=== PATIENT | female | born 1945 | race Caucasian/White ===

== ENCOUNTER 2021-07-27 06:38 | Day surgery (SDC) | payer MEDICARE ==
[2021-07-27] VITALS (7 sets, daily range): BP systolic 125–161; BP diastolic 61–79
[~2021-07-27] VITALS: Ht 152.4 cm; Wt 77.2 kg
[2021-07-27] MEDS ORDERED: normal saline 1000ml 1,000 ML IV SCH ×2 (07:00→09:15)
[2021-07-27] MEDS ORDERED: ESOM20CA PO (07:18)
[2021-07-27] MEDS ORDERED: FURO20TA4 PO (07:18)
[2021-07-27] MEDS ORDERED: POTA-82 PO (07:18)
[2021-07-27] MEDS ORDERED: DILT-103 PO (07:18)
[2021-07-27] MEDS ORDERED: METO10TA8 PO (07:18)
[2021-07-27] MEDS ORDERED: LIDOcaine 1%/PF 5ML 10 MG/ML VIAL SQ ONE (09:10)
== END 2021-07-27 11:02 | disposition home or self-care (01) ==
LOC: SSTAY O 06:38
PROVIDERS: ATTEND Radiology Diagnostic Radiology
DX: R59.0 Localized enlarged lymph nodes (principal); C81.0 Nodular lymphocyte predominant Hodgkin lymphoma; I10 Essential (primary) hypertension; Z90.81 Acquired absence of spleen; Z90.49 Acquired absence of other specified parts of digestive tract; Z98.890 Other specified postprocedural states; Z88.1 Allergy status to other antibiotic agents; Z88.8 Allergy status to other drugs, medicaments and biological substances; Z79.899 Other long term (current) drug therapy
CPT/HCPCS: 10005; 88184; 88185; J7030; 38505

== ENCOUNTER 2022-03-15 08:07 | Day surgery (SDC) | payer MEDICARE ==
[~2022-03-15] VITALS: Ht 152.4 cm; Wt 75.8 kg
[2022-03-15] VITALS (10 sets, daily range): BP systolic 107–150; BP diastolic 58–80
[~2022-03-15 08:07] MED LIST: DILT-103 PO; ESOM20CA PO; FURO20TA4 PO; METO10TA8 PO; POTA-82 PO
[2022-03-15] MEDS ORDERED: PANT20TA18 PO (08:41)
[2022-03-15] MEDS ORDERED: LIDOcaine 1% 30ml preserv. free vial SQ STA (08:44)
[2022-03-15] MEDS ORDERED: normal saline 1000ml 1,000 ML IV SCH (09:55)
[2022-03-15] MEDS ORDERED: midazolam 1 mg/ML 2ml injection ONE (10:27)
[2022-03-15] MEDS ORDERED: fentaNYL/PF 50MCG/1 ML 2ML syringe ONE (10:27)
[2022-03-15] MEDS ORDERED: heparin sodium, porcine/PF 100unit/ml 5ML syringe ONE (10:27)
== END 2022-03-15 12:30 | disposition home or self-care (01) ==
LOC: SSTAY O 08:07
PROVIDERS: ATTEND Radiology Vascular & Interventional Radiology
DX: C85.90 Non-Hodgkin lymphoma, unspecified, unspecified site (principal); J90 Pleural effusion, not elsewhere classified; I10 Essential (primary) hypertension; Z79.899 Other long term (current) drug therapy; Z88.8 Allergy status to other drugs, medicaments and biological substances; Z90.49 Acquired absence of other specified parts of digestive tract; Z98.890 Other specified postprocedural states; Z90.81 Acquired absence of spleen
CPT/HCPCS: 32555; 36561; 76937; 77001; 99152; C1729; C1769; C1788; C1894; J1642; J2250; J3010; J3490; J7030; 99153; A4620

== ENCOUNTER 2022-03-22 06:14 | Day surgery (SDC) | payer MEDICARE ==
[~2022-03-22] VITALS: Ht 152.4 cm; Wt 74.8 kg
[2022-03-22] VITALS (7 sets, daily range): BP systolic 124–135; BP diastolic 57–95
[~2022-03-22 06:14] MED LIST changes: -ESOM20CA PO; -FURO20TA4 PO; -METO10TA8 PO; +PANT20TA18 PO
[2022-03-22] MEDS ORDERED: LIDOcaine 1% 30ml preserv. free vial IJ STA (06:36)
[2022-03-22] MEDS ORDERED: albumin 25% 100mL bottle x 1 IV PRN (06:45)
== END 2022-03-22 10:00 | disposition home or self-care (01) ==
LOC: SSTAY O 06:14
PROVIDERS: ATTEND Radiology Vascular & Interventional Radiology
DX: J90 Pleural effusion, not elsewhere classified (principal); I10 Essential (primary) hypertension; Z79.899 Other long term (current) drug therapy; Z90.49 Acquired absence of other specified parts of digestive tract; Z90.81 Acquired absence of spleen; Z98.890 Other specified postprocedural states; C85.95 Non-Hodgkin lymphoma, unspecified, lymph nodes of inguinal region and lower limb; Z88.8 Allergy status to other drugs, medicaments and biological substances
CPT/HCPCS: 32555; C1729; A4615

== ENCOUNTER 2022-03-29 06:32 | Day surgery (SDC) | payer MEDICARE ==
[~2022-03-29] VITALS: Ht 152.4 cm; Wt 74.9 kg
[~2022-03-29 06:32] MED LIST changes: -POTA-82 PO
[2022-03-29] MEDS ORDERED: LIDOcaine 1% 30ml preserv. free vial SQ STA (07:03)
[2022-03-29 07:29] VITALS: BP 138/61
[2022-03-29 09:16] VITALS: BP 138/63
[2022-03-29 09:30] VITALS: BP 132/54
[2022-03-29 09:45] VITALS: BP 130/56
== END 2022-03-29 09:48 | disposition home or self-care (01) ==
LOC: SSTAY O 06:32
PROVIDERS: ATTEND Radiology Vascular & Interventional Radiology
DX: J90 Pleural effusion, not elsewhere classified (principal); C85.90 Non-Hodgkin lymphoma, unspecified, unspecified site; Z90.81 Acquired absence of spleen; I10 Essential (primary) hypertension; Z90.49 Acquired absence of other specified parts of digestive tract; Z79.899 Other long term (current) drug therapy; Z98.890 Other specified postprocedural states; Z20.822 Contact with and (suspected) exposure to COVID-19
CPT/HCPCS: 32555; C1729

== ENCOUNTER 2022-04-03 09:00 | Day surgery (SDC) | payer MEDICARE ==
[~2022-04-03] VITALS: Ht 152.4 cm; Wt 73.2 kg
[2022-04-03] MEDS ORDERED: ondansetron 4mg rapidly disintigrating tab PO ONE (09:55)
[2022-04-03 10:09] VITALS: BP 156/111
[2022-04-03 10:16] VITALS: BP 112/55
[2022-04-03 10:50] VITALS: BP 105/52
== END 2022-04-03 10:50 | disposition home or self-care (01) ==
LOC: SSTAY O 09:00
PROVIDERS: ATTEND Radiology Vascular & Interventional Radiology
DX: J90 Pleural effusion, not elsewhere classified (principal); I10 Essential (primary) hypertension; Z85.72 Personal history of non-Hodgkin lymphomas; Z90.81 Acquired absence of spleen; Z90.49 Acquired absence of other specified parts of digestive tract; Z98.890 Other specified postprocedural states; Z79.899 Other long term (current) drug therapy
CPT/HCPCS: 32555; C1729

== ENCOUNTER 2022-04-13 09:00 | Day surgery (SDC) | payer MEDICARE ==
[~2022-04-13] VITALS: Ht 152.4 cm; Wt 74.2 kg
[2022-04-13 09:23] VITALS: BP 152/73
[2022-04-13] MEDS ORDERED: POTA-206 PO (09:26)
[2022-04-13] MEDS ORDERED: FURO20TA4 PO (09:27)
[2022-04-13 10:16] VITALS: BP 140/56
[2022-04-13 10:26] VITALS: BP 138/63
[2022-04-13 10:45] VITALS: BP 115/51
[2022-04-13 11:00] VITALS: BP 106/58
== END 2022-04-13 11:00 | disposition home or self-care (01) ==
LOC: SSTAY O 09:00
PROVIDERS: ATTEND Radiology Vascular & Interventional Radiology
DX: J90 Pleural effusion, not elsewhere classified (principal); I10 Essential (primary) hypertension; Z85.72 Personal history of non-Hodgkin lymphomas; Z90.81 Acquired absence of spleen; Z98.890 Other specified postprocedural states; Z79.899 Other long term (current) drug therapy; Z88.8 Allergy status to other drugs, medicaments and biological substances; Z88.1 Allergy status to other antibiotic agents; Z90.49 Acquired absence of other specified parts of digestive tract
CPT/HCPCS: 32555; C1729

== ENCOUNTER 2022-04-20 08:39 | Day surgery (SDC) | payer MEDICARE ==
[~2022-04-20] VITALS: Ht 152.4 cm; Wt 74.2 kg
[~2022-04-20 08:39] MED LIST changes: -DILT-103 PO; +FURO20TA4 PO; +POTA-206 PO
[2022-04-20 08:40] VITALS: BP 121/52
[2022-04-20] MEDS ORDERED: LIDOcaine 1% 30ml preserv. free vial SQ STA (08:49)
[2022-04-20] MEDS ORDERED: ONDA8TAB13 PO (08:59)
[2022-04-20] MEDS ORDERED: ALLO100T PO (08:59)
[2022-04-20] MEDS ORDERED: NIRM1TAB5 PO (08:59)
[2022-04-20] MEDS ORDERED: METO10TA8 PO (08:59)
[2022-04-20 09:25] VITALS: BP 107/51
[2022-04-20 09:30] VITALS: BP 123/95
[2022-04-20 09:45] VITALS: BP 121/54
[2022-04-20 10:00] VITALS: BP 121/54
== END 2022-04-20 10:05 | disposition home or self-care (01) ==
LOC: SSTAY O 08:39
PROVIDERS: ATTEND Radiology Vascular & Interventional Radiology
DX: J90 Pleural effusion, not elsewhere classified (principal); Z85.72 Personal history of non-Hodgkin lymphomas; Z90.81 Acquired absence of spleen; I10 Essential (primary) hypertension; Z90.49 Acquired absence of other specified parts of digestive tract; Z98.890 Other specified postprocedural states; Z88.8 Allergy status to other drugs, medicaments and biological substances; Z79.899 Other long term (current) drug therapy
CPT/HCPCS: 32555; C1729; J3490

== ENCOUNTER 2022-04-27 08:44 | Day surgery (SDC) | payer MEDICARE ==
[~2022-04-27] VITALS: Ht 154.9 cm; Wt 68.3 kg
[~2022-04-27 08:44] MED LIST changes: +ALLO100T PO; +METO10TA8 PO; +NIRM1TAB5 PO; +ONDA8TAB13 PO
[2022-04-27] MEDS ORDERED: LIDOcaine 1% 30ml preserv. free vial SQ STA (08:50)
[2022-04-27] MEDS ORDERED: NITR100C6 PO (09:05)
[2022-04-27] MEDS ORDERED: POTA-82 PO (09:06)
[2022-04-27 09:10] VITALS: BP 134/66
[2022-04-27 09:20] VITALS: BP 134/66
[2022-04-27 09:25] VITALS: BP 108/51
[2022-04-27] MEDS ORDERED: PHEN-824 PO (09:30)
[2022-04-27 09:40] VITALS: BP 119/64
[2022-04-27 09:55] VITALS: BP 132/64
[2022-04-27 10:10] VITALS: BP 139/68
== END 2022-04-27 10:10 | disposition home or self-care (01) ==
LOC: SSTAY O 08:44
PROVIDERS: ATTEND Radiology Vascular & Interventional Radiology
DX: J90 Pleural effusion, not elsewhere classified (principal); I10 Essential (primary) hypertension; Z85.72 Personal history of non-Hodgkin lymphomas; Z90.49 Acquired absence of other specified parts of digestive tract; Z90.81 Acquired absence of spleen; Z98.890 Other specified postprocedural states
CPT/HCPCS: 32555; C1729; J3490

== ENCOUNTER 2022-05-04 06:24 | Day surgery (SDC) | payer MEDICARE ==
[2022-05-04] VITALS (7 sets, daily range): BP systolic 124–147; BP diastolic 54–81
[~2022-05-04] VITALS: Ht 153 cm; Wt 70.7 kg
[~2022-05-04 06:24] MED LIST changes: -NIRM1TAB5 PO; +NITR100C6 PO; +PHEN-824 PO; -POTA-206 PO; +POTA-82 PO
[2022-05-04] MEDS ORDERED: albumin 25% 100mL bottle x 1 IV PRN (06:45)
[2022-05-04] MEDS ORDERED: SIME125C43 PO (06:59)
[2022-05-04] MEDS ORDERED: CALC500T11 PO (06:59)
[2022-05-04] MEDS ORDERED: LIDOcaine 1% 30ml preserv. free vial IJ STA (08:27)
== END 2022-05-04 09:43 | disposition home or self-care (01) ==
LOC: SSTAY O 06:24
PROVIDERS: ATTEND Radiology Vascular & Interventional Radiology
DX: J90 Pleural effusion, not elsewhere classified (principal); I10 Essential (primary) hypertension; Z90.81 Acquired absence of spleen; Z90.49 Acquired absence of other specified parts of digestive tract; Z98.890 Other specified postprocedural states; Z79.899 Other long term (current) drug therapy
CPT/HCPCS: 32555; C1729

== ENCOUNTER 2022-05-18 07:59 | Day surgery (SDC) | payer MEDICARE ==
[~2022-05-18] VITALS: Ht 152.4 cm; Wt 72.9 kg
[~2022-05-18 07:59] MED LIST changes: +CALC500T11 PO; -METO10TA8 PO; -NITR100C6 PO; -PHEN-824 PO; +SIME125C43 PO
[2022-05-18] MEDS ORDERED: albumin 25% 100mL bottle x 1 IV PRN (08:35)
[2022-05-18 08:42] VITALS: BP 150/72
[2022-05-18] MEDS ORDERED: LIDOcaine 1% 30ml preserv. free vial SQ STA (09:48)
[2022-05-18 10:05] VITALS: BP 159/77
[2022-05-18 10:20] VITALS: BP 168/92
[2022-05-18 10:35] VITALS: BP 169/88
== END 2022-05-18 10:55 | disposition home or self-care (01) ==
LOC: SSTAY O 07:59
PROVIDERS: ATTEND Radiology Diagnostic Radiology
DX: J90 Pleural effusion, not elsewhere classified (principal); I10 Essential (primary) hypertension; C85.10 Unspecified B-cell lymphoma, unspecified site; Z90.81 Acquired absence of spleen; Z90.49 Acquired absence of other specified parts of digestive tract; Z88.1 Allergy status to other antibiotic agents; Z88.8 Allergy status to other drugs, medicaments and biological substances; Z98.890 Other specified postprocedural states; Z79.899 Other long term (current) drug therapy
CPT/HCPCS: 32555; C1729; J3490

== ENCOUNTER 2022-05-28 07:42 | Day surgery (SDC) | payer MEDICARE ==
[~2022-05-28] VITALS: Ht 152.4 cm; Wt 71.3 kg
[~2022-05-28 07:42] MED LIST changes: +LIDOcaine 1% 30ml preserv. free vial SQ STA
[2022-05-28 08:05] VITALS: BP 132/66
[2022-05-28] MEDS ORDERED: SIME80TA15 PO (08:05)
[2022-05-28 08:25] VITALS: BP 132/94
[2022-05-28 08:40] VITALS: BP 144/60
[2022-05-28 08:55] VITALS: BP 122/65
[2022-05-28 09:10] VITALS: BP 115/65
== END 2022-05-28 09:10 | disposition home or self-care (01) ==
LOC: SSTAY O 07:42
PROVIDERS: ATTEND Radiology Diagnostic Radiology
DX: J90 Pleural effusion, not elsewhere classified (principal); I10 Essential (primary) hypertension; Z90.49 Acquired absence of other specified parts of digestive tract; Z90.81 Acquired absence of spleen; Z98.890 Other specified postprocedural states; Z88.8 Allergy status to other drugs, medicaments and biological substances; Z79.899 Other long term (current) drug therapy
CPT/HCPCS: 32555; C1729; J3490

== ENCOUNTER 2022-06-07 07:56 | Day surgery (SDC) | payer MEDICARE ==
[~2022-06-07] VITALS: Ht 152.4 cm; Wt 68.6 kg
[~2022-06-07 07:56] MED LIST changes: -LIDOcaine 1% 30ml preserv. free vial SQ STA; -SIME125C43 PO; +SIME80TA15 PO
[2022-06-07 08:15] VITALS: BP 143/59
[2022-06-07] MEDS ORDERED: LIDOcaine 1% 30ml preserv. free vial SQ STA (08:37)
[2022-06-07 10:01] VITALS: BP 128/57
[2022-06-07 10:15] VITALS: BP 122/57
[2022-06-07 10:30] VITALS: BP 117/52
[2022-06-07 10:45] VITALS: BP 115/52
[2022-06-07 11:00] VITALS: BP 109/55
== END 2022-06-07 11:15 | disposition home or self-care (01) ==
LOC: SSTAY O 07:56
PROVIDERS: ATTEND Radiology Vascular & Interventional Radiology
DX: J90 Pleural effusion, not elsewhere classified (principal); I10 Essential (primary) hypertension; Z90.81 Acquired absence of spleen; Z85.72 Personal history of non-Hodgkin lymphomas; Z90.49 Acquired absence of other specified parts of digestive tract; Z98.890 Other specified postprocedural states; Z79.899 Other long term (current) drug therapy
CPT/HCPCS: 32555; C1729; J3490

== ENCOUNTER 2022-06-18 06:54 | Day surgery (SDC) | payer MEDICARE ==
[~2022-06-18] VITALS: Ht 152.4 cm; Wt 67.4 kg
[2022-06-18 07:10] VITALS: BP 150/74
[2022-06-18] MEDS ORDERED: LIDOcaine 1% 30ml preserv. free vial SQ STA (07:30)
[2022-06-18 08:35] VITALS: BP 129/60
[2022-06-18 08:45] VITALS: BP 118/64
[2022-06-18 09:00] VITALS: BP 133/58
[2022-06-18 09:08] VITALS: BP 124/55
== END 2022-06-18 09:23 | disposition home or self-care (01) ==
LOC: SSTAY O 06:54
PROVIDERS: ATTEND Radiology Diagnostic Radiology
DX: J90 Pleural effusion, not elsewhere classified (principal); I10 Essential (primary) hypertension; Z98.890 Other specified postprocedural states; Z85.72 Personal history of non-Hodgkin lymphomas; Z90.81 Acquired absence of spleen; Z90.49 Acquired absence of other specified parts of digestive tract; Z88.8 Allergy status to other drugs, medicaments and biological substances; Z88.1 Allergy status to other antibiotic agents; Z79.899 Other long term (current) drug therapy
CPT/HCPCS: 32555; C1729; J3490; A4615